=== PATIENT | female | born 2000 | race Hispanic/Latino ===

== ENCOUNTER 2019-06-18 15:01 | Outpatient (CLI) | payer OTHER ==
--- NOTE | 2019-06-18 16:19 | ULT ---
EXAM: OB ultrasound COMPARISON: None HISTORY: female. Evaluate size, dates, and anatomy. TECHNIQUE: Multiplanar grayscale and color Doppler transabdominal sonographic images are obtained. FINDINGS: There is a single intrauterine gestation in cephalic presentation. Cardiac Doppler demonstr ates heart tones with a heart rate of 143 beats per minute. The placenta is located anteriorly without evidence of placenta previa. There is a normal amount of amniotic fluid with an am niotic fluid index of 11.69 centimeters. Cervical length is not well assessed on this exam. biometry measurements: BPD 5.17 cm -- 21 weeks 5 days HC 19.12 cm -- 21 weeks 3 days AC 16.7 cm -- 21 weeks 6 days FL 3.64 cm -- 21 weeks 4 days The estimated gestational age by ultrasound is 21 weeks 5 days with an YONATHAN on10/24/2019. Gestational a ge by the last menstrual period is 10/23/2019. The estimated weight by ultrasound is 438 g (15 ounces). This represents 32 percentile for feta l weight. A 4 chambered heart is visualized. The cerebellum, visualized portions of the spine, kidneys, u rinary bladder, and cord insertion demonstrate a normal sonographic appearance. A three-vessel cord is visualized. No anomalies are seen. IMPRESSION: 1. Single intrauterine gestation in cephalic presentation with heart tones documented. Estimat ed gestational age by ultrasound is 21 weeks 5 days. 2. Estimated weight is 438 g (15 ounces). 3. Amniotic fluid index is 11.69 centimeters.
== END 2019-06-18 15:02 | disposition home or self-care (01) ==
LOC: BICULT 15:01
DX: Z34.02 Encounter for supervision of normal first pregnancy, second trimester (principal); Z3A.21 21 weeks gestation of pregnancy
CPT/HCPCS: 76805

== ENCOUNTER 2019-10-11 21:54 | Inpatient (IN) | payer OTHER ==
[2019-10-11 22:29] VITALS: BMI 28.4
[2019-10-12] MEDS: Lactated Ringer's 1,000 ML IV SCH ×2 (01:45→03:38)
[2019-10-12] MEDS ORDERED: Ibuprofen 800 MG TAB PO PRN (02:22)
[2019-10-12] MEDS ORDERED: Ondansetron PF 4 MG/2 ML Vial IVP PRN ×3 (02:22→10:29)
[2019-10-12] MEDS ORDERED: hydrALAZINE 20 MG/ML VIAL SLOW IVP PRN ×2 (02:22→10:29)
[2019-10-12] MEDS ORDERED: Promethazine HCl 25 MG/ML VIAL IM PRN ×3 (02:22→10:29)
[2019-10-12] MEDS ORDERED: Lidocaine 1% (PF) 30 ML VIAL SC PRN (02:22)
[2019-10-12] MEDS ORDERED: Butorphanol Tartrate 1 MG/ML VIAL ONE (02:23)
--- NOTE | 2019-10-12 02:25 | PDOC.FPROB ---
FMR OB H&P: HPI - History of Present Illness Chief Complaint: contractions History of Present Illness: 19 yo G1 @38.2wks presents with contractions. Denies LOF, vaginal bleeding, discharge, dysuria. Endorses movement. FMR OB H&P: Current - Care : 1 - OB Labs Blood type: O RH: positive Antibody Screen: negative HIV: negative RPR: negative HepBsAg: negative Rubella: immune Urine drug screen: positive (thc) Gonorrhea: negative Chlamydia: negative 1 hour gtt: 60 FMR OB H&P: History - Past Medical History PMH: denies - Surgical History Sx History: denies - Social History Social History: denies smoking, alcohol, drug use - Family History Family History: denies family hx of htn, diabetes FMR OB H&P: Medications - Current Home Medications: Medication Instructions Recorded Confirmed Type Pnv No.95/Ferrous Fum/Folic AC 1 tab PO DAILY 10/11/19 10/11/19 History [ [place]] Allergies/Adverse Reactions: Allergies Allergy/AdvReac Type Severity Reaction Status Date / Time Penicillins Allergy Mild Hives Verified 10/11/19 22:27 FMR OB H&P: ROS - Review of Systems General: denies: fever/chills, weight/appetite/sleep changes ENT: denies: nasal congestion, rhinorrhea Cardiovascular: denies: chest pain, palpitation, edema Respiratory: denies: cough, congestion, shortness of breath Gastrointestinal: reports: abdominal pain. denies: nausea, vomiting, diarrhea Genitourinary (Female): reports: contractions, vaginal pressure. denies: dysuria, hematuria, polyuria, vaginal discharge, vaginal bleeding Musculoskeletal: denies: pain, stiffness Neurologic: denies: numbness, syncope Integumentary: denies: itching, rash Endocrine: denies: polydipsia, polyuria Hematologic/Lymphatic: denies: prolonged or excessive bleeding Psychological: denies: depression, anxiety FMR OB H&P: Vital Signs - Maternal Vital signs: BP: 115/71 - Heart Tones Baseline: 120 Variability: moderate Acceleration: present Deceleration: late Category: category 2 Granite contractions every: 1-2 FMR OB H&P: Physical Exam - Physical Exam General: NAD, awake, alert and oriented HEENT: normocephalic and atraumatic Heart: RRR, normal S1/S2, no murmurs/rubs/gallops General: CTAB, no respiratory distress Abdomen: soft, gravid Skin: no rash, good tugor, capillary refill <2 seconds Lymphatic: no unusual bruising or bleeding, no purpura Psychiatric: intact recent and remote memory - Pelvic Exam SVE: /-1 FMR OB H&P: A/P - Problem List (1) Third trimester Current Visit: Yes Status: Acute Code(s): Z34.93 - ENCNTR FOR SUPRVSN OF NORMAL PREG, UNSP, THIRD TRIMESTER Discussion: Date/Time: 10/12/19 0225 19 yo G1 @38.2wks presents with contractions- 1.)Labor rule out-will monitor via NST and recheck cervix in two hours. Will admit if pt makes sufficient cervical change. This H&P was discussed with Dr. Talley who agree with the above documentation and plan.
[2019-10-12 02:41] LABS: Hemoglobin 10.6 g/dL (12.0-16.0); Mean Corpuscular HGB CONC 35.6 g/dL (32.0-36.0); Mean Corpuscular Volume 89.7 fL (78.0-98.0); Mean Platelet Volume 9.1 fL (7.4-10.4); Platelet Count 280 thou/uL (130-400); RBC Distribution Width 11.9 % (11.5-14.5); Red Blood Cell (RBC) Count 3.31 mill/uL (4.20-5.40); White Blood Cell (WBC) Count 17.1 thou/uL (4.8-10.8)
[2019-10-12 03:20] LABS: HBSAg Index 0.17 S/CO (0-0.99); Hep B Surf Ag Non-Reactive S/CO (NonReactive)
[2019-10-12] MEDS ORDERED: Fentanyl 4 mcg/Bup 0.1% Cadd 100 ML ONE (03:26)
[2019-10-12] MEDS ORDERED: Lidocaine 1.5%/Epinephrine 1:200,000 5 ML AMPUL IJ ONE (03:46)
[2019-10-12] MEDS ORDERED: Acetaminophen 325 MG TAB PO PRN (04:06)
[2019-10-12] MEDS ORDERED: diphenhydrAMINE 50 MG/ML VIAL IVP PRN (04:06)
[2019-10-12] MEDS ORDERED: ePHEDrine/0.9% NaCl/PF SYRINGE 50 mg/10 ml SLOW IVP PRN (04:06)
[2019-10-12] MEDS ORDERED: Naloxone HCl 0.4 mg/ml Vial IVP PRN ×2 (04:06)
[2019-10-12] MEDS ORDERED: Lactated Ringer's 500 ML IV PRN (04:06)
[2019-10-12] MEDS ORDERED: Fentanyl 4 mcg/Bupivacaine 0.1% Cassette 100 ML EPIDURAL SCH (04:15)
[2019-10-12] MEDS ORDERED: Communication Order-Pharmacy FS SCH (04:15)
[2019-10-12 04:37] LABS: Syphilis Antibody Nonreactive (Nonreactive); Syphilis Antibody Index 0.06 S/CO (<1.00 Non-Reactive)
[2019-10-12] MEDS: NS / Oxytocin 40 units/1000ml 1,000 ML IV PRN ×2 (08:21→09:02)
[2019-10-12] MEDS ORDERED: Bisacodyl 10 MG SUPP PR PRN (10:29)
[2019-10-12] MEDS ORDERED: NS / Oxytocin 40 units/1000ml 1,000 ML IV SCH (10:29)
[2019-10-12] MEDS ORDERED: diphenhydrAMINE 25 MG CAP PO PRN (10:29)
[2019-10-12] MEDS ORDERED: HYDROcodone/Acetaminophen 5/325 mg Tablet PO PRN (10:29)
[2019-10-12] MEDS ORDERED: Lanolin Ointment 7 GM TUBE TOP PRN (10:29)
[2019-10-12] MEDS ORDERED: Milk Of Magnesia 30 ML UDCUP PO PRN (10:29)
[2019-10-12] MEDS: HYDROcodone/Acetaminophen 5/325 mg Tablet PO PRN (11:16)
[2019-10-12] MEDS: Ibuprofen 800 MG TAB PO SCH ×2 (13:52→22:21)
[2019-10-12] MEDS: Ferrous Sulfate 325 MG TAB PO SCH (15:29)
[2019-10-12] MEDS: Docusate Calcium (SURFAK) 240 MG CAP PO SCH (22:21)
[2019-10-13] MEDS: Ibuprofen 800 MG TAB PO SCH ×3 (05:17→22:35)
[2019-10-13 06:15] LABS: #Basophils 0.1 thou/uL (0.0-0.2); #Eosinphils 0.1 thou/uL (0.0-0.7); #Lymphocytes 2.7 thou/uL (1.20-3.40); #Monocytes 0.8 thou/uL (0.11-0.59); #Neutrophils 8.9 thou/uL (1.40-6.50); %Basophils 0.5 % (0.0-1.0); %Lymphocytes 21.5 % (21.0-51.0); %Monocytes 6.4 % (0.0-10.0); %Neutrophils 70.7 % (42.0-75.0); Hemoglobin 8.6 g/dL (12.0-16.0); Mean Corpuscular HGB CONC 34.1 g/dL (32.0-36.0); Mean Corpuscular Hemoglobin 31.7 pg (27.0-31.0); Mean Corpuscular Volume 92.8 fL (78.0-98.0); Mean Platelet Volume 8.7 fL (7.4-10.4); Platelet Count 211 thou/uL (130-400); RBC Distribution Width 11.8 % (11.5-14.5); White Blood Cell (WBC) Count 12.5 thou/uL (4.8-10.8)
[2019-10-13] MEDS: Ferrous Sulfate 325 MG TAB PO SCH ×2 (08:31→17:40)
[2019-10-13] MEDS: Prenatal Vitamin 1 TAB PO SCH (08:31)
[2019-10-13] MEDS: Docusate Calcium (SURFAK) 240 MG CAP PO SCH ×2 (08:31→22:35)
[2019-10-13] MEDS: Benzocaine-Menthol 82.5 ML CAN TOP PRN (08:35)
[2019-10-13] MEDS ORDERED: Adacel (T-DAP) 0.5 ML SYRINGE IM ONE (10:29)
[2019-10-13] MEDS: HYDROcodone/Acetaminophen 5/325 mg Tablet PO PRN (17:40)
[2019-10-14 01:19] VITALS: TEMP 98.3
[2019-10-14] MEDS: HYDROcodone/Acetaminophen 5/325 mg Tablet PO PRN ×2 (06:11→14:40)
[2019-10-14] MEDS: Ibuprofen 800 MG TAB PO SCH ×2 (06:12→14:37)
[2019-10-14 08:00] VITALS: BP 107/68
[2019-10-14] MEDS: Ferrous Sulfate 325 MG TAB PO SCH (09:22)
[2019-10-14] MEDS: Docusate Calcium (SURFAK) 240 MG CAP PO SCH (09:22)
[2019-10-14] MEDS: Prenatal Vitamin 1 TAB PO SCH (09:22)
[2019-10-14] MEDS: Benzocaine-Menthol 82.5 ML CAN TOP PRN (09:26)
== END 2019-10-14 15:47 | disposition home or self-care (01) | DRG 807 ==
LOC: L&D/OP 21:54 → L&D 10-12 02:52 → 3SW 10-12 11:09
PROVIDERS: ADMIT Family Medicine; ATTEND Family Medicine
PROC: 10E0XZZ Delivery of Products of Conception, External Approach (ICD-10-PCS; principal; 2019-10-12)
PROC: 0KQM0ZZ Repair Perineum Muscle, Open Approach (ICD-10-PCS; 2019-10-12)
DX: O70.1 Second degree perineal laceration during delivery (principal); Z37.0 Single live birth; Z3A.38 38 weeks gestation of pregnancy
CPT/HCPCS: 36415; 51702; 85025; 85027; 86780; 86850; 86900; 86901; 87340; 99285; J0595; J3490